=== PATIENT | male | born 1990 | race African-American/Black ===

== ENCOUNTER 2017-09-28 13:58 | Emergency (ER) | payer OTHER ==
[~2017-09-28] VITALS: Ht 187.9 cm; Wt 90.7 kg
[~2017-09-28 13:58] MED LIST: ATARAX,VISTARIL50 MG PO; CIPRO500 MG PO; MIRTAZAPINE15 M2 PO; MOTRIN800 MG PO; TYLENOL325 M1 PO; VIBRA-TAB100 MG PO; VIBRAMYCIN100 MG PO; VITAMIN D50000 I3 PO; ZYPREXA5 M1 PO
[2017-09-28] MEDS ORDERED: SUBOXONE 8 MG-1 EACH SL (14:03)
[2017-09-28] MEDS ORDERED: LORATADINE10 M3 PO (14:10)
[2017-09-28] MEDS ORDERED: POLYTRIM 1000010 M1 OPH (14:10)
== END 2017-09-28 14:06 | disposition home or self-care (01) ==
LOC: ED 13:58
DX: H10.9 Unspecified conjunctivitis (principal); R09.81 Nasal congestion; F17.200 Nicotine dependence, unspecified, uncomplicated; F32.9 Major depressive disorder, single episode, unspecified; F14.10 Cocaine abuse, uncomplicated